=== PATIENT | female | born 1940 | race Caucasian/White ===

== ENCOUNTER → 2019-01-20 21:46 | Outpatient (CLI) | payer MEDICARE, OTHER, SELFPAY ==
[2019-01-20 22:03] LABS: Microscopic, Urine URINE MICROSCOPIC (MICROSCOPIC)
[2019-01-20 22:06] LABS: Appearance,Urine CLOUDY (Clear); Bilirubin,Urine Negative (Negative); Blood, Urine 2+ (Negative); Color,Urine YELLOW (Yellow); Glucose,Urine (UA) Negative (Negative); Ketones,Urine Negative (Negative); Leukocyte Esterase,Urine 2+ (Negative); Nitrate,Urine Negative (Negative); Protein,Urine 2+ (Negative); Specific Gravity, Urine 1.025 (1.005-1.030); Urobilinogen,Urine 0.2 EU/dl (0.2)
[2019-01-20 22:08] LABS: RBC,Urine 50-100 #/hpf (0-3); WBC,Urine TNTC #/hpf (0-3)
== END ==
PROVIDERS: PCP Internal Medicine Adolescent Medicine; Visit Provider Internal Medicine Adolescent Medicine
DX: N39.0 Urinary tract infection, site not specified (principal)
CPT/HCPCS: 81001; 87086